=== PATIENT | female | born 1950 | race Caucasian/White ===

== ENCOUNTER → 2022-02-14 | Day surgery (SDC) | payer OTHER ==
[~2022-02-14] MED LIST: ADULT LOW DOSE81 MG PO; ALL DAY ALLERGY10 MG PO; ELIQUIS5 MG PO; FUROSEMIDE20 MG PO; HYDROCHLOROTHIA25 MG PO; LANSOPRAZOLE30 MG PO; LIPITOR10 MG PO; PREDNISONE20 MG PO; PROZAC40 MG PO
== END | disposition home or self-care (01) ==
LOC: OR 06:10
DX: Z12.11 Encounter for screening for malignant neoplasm of colon (principal); D12.6 Benign neoplasm of colon, unspecified; K57.30 Diverticulosis of large intestine without perforation or abscess without bleeding; K21.9 Gastro-esophageal reflux disease without esophagitis; I10 Essential (primary) hypertension; E78.00 Pure hypercholesterolemia, unspecified; M81.0 Age-related osteoporosis without current pathological fracture; Z86.010 Personal history of colon polyps; Z88.5 Allergy status to narcotic agent; Z88.0 Allergy status to penicillin; Z79.899 Other long term (current) drug therapy
CPT/HCPCS: J2001; J2704; J7120